=== PATIENT | male | born 1945 | race Caucasian/White ===

== ENCOUNTER 2021-04-09 16:48 | Emergency (ER) | payer BC ==
[2021-04-09 17:27] VITALS: BP 120/66; PULSE 62
--- NOTE | 2021-04-09 17:35 | EDM.PDOC ---
ED HPI GENERAL MEDICAL PROBLEM - General Chief Complaint: Lower Extremity Injury/Pain Stated Complaint: FELL HURT LEFT CALF Time Seen by Provider: 04/09/21 17:00 Source of Information: Reports: Patient History Limitations: Reports: No Limitations - History of Present Illness INITIAL COMMENTS - FREE TEXT/NARRATIVE: Pt. presents to ER with complaints of bilateral calf pain. Pt. states that he was [place] when he fell. He states that he caught himself and did not completely fall, and states that he injured his calf muscles in the process. Pt. denies any problems with weight bearing. He was able to morgan after the fall. Denies any injury elsewhere. 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, Cold Therapy Bilateral Lower Leg Pain Score (Numeric/FACES): 6 - Related Data Allergies Allergy/AdvReac Type Severity Reaction Status Date / Time ezetimibe Allergy Muscle Verified 04/09/21 17:21 [From Vytorin 10-10] Aches niacin Allergy Muscle Verified 04/09/21 17:21 [From Niaspan Aches Extended-Release] pravastatin sodium Allergy Muscle Verified 04/09/21 17:21 [From Pravachol] Aches rosuvastatin calcium Allergy Muscle Verified 04/09/21 17:21 [From Crestor] Aches simvastatin Allergy Muscle Verified 04/09/21 17:21 [From Vytorin 10-10] Aches Home Meds: Home Meds Acetaminophen [Acetaminophen Extra Strength] 1 cap PO QID PRN 10/27/13 [History] Aspirin [Halfprin] 81 mg PO DAILY 10/27/13 [History] Flaxseed [Flaxseed Oil] 1,000 mg PO DAILY 10/27/13 [History] Lisinopril 2.5 mg PO DAILY 10/27/13 [History] Metoprolol Tartrate 0.5 tab PO DAILY 10/27/13 [History] Nitroglycerin [Nitrostat] 0.4 mg SL ASDIRECTED PRN 10/27/13 [History] [place]-3 Fatty Acids [[place]-3] 1,000 mg PO BID 10/27/13 [History] Fluticasone Propionate [Flonase] 1 spray NASBOTH DAILY 12/23/15 [History] Alirocumab [Praluent Pen] 75 mg SQ ASDIRECTED 09/12/16 [History] Past Medical History Cardiovascular History: Reports: [place] - Past Surgical History Cardiovascular Surgical History: Reports: Coronary Artery Bypass Review of Systems - Review of Systems Review Of Systems: See Below Constitutional: Reports: No Symptoms Eyes: Reports: No Symptoms Ears: Reports: No Symptoms Nose: Reports: No Symptoms Mouth/Throat: Reports: No Symptoms Respiratory: Reports: No Symptoms Cardiovascular: Reports: No Symptoms GI/Abdominal: Reports: No Symptoms Genitourinary: Reports: No Symptoms Musculoskeletal: Reports: Leg Pain Skin: Reports: No Symptoms Neurological: Reports: No Symptoms Psychiatric: Reports: No Symptoms ED EXAM, GENERAL - Physical Exam Exam: See Below Exam Limited By: No Limitations General Appearance: Alert, WD/WN, No Apparent Distress Extremities: Normal Inspection, Normal Range of Motion, No Pedal Edema, Other (pain on palpation of backs of calves bilaterally. No ecchymosis. No edema. No camron deformity noted to either extremity. Drawer tests of knees negative bilaterally.) Neurological: Alert, Oriented, CN II-XII Intact, Normal Cognition Psychiatric: Normal Affect, Normal Mood Skin Exam: Warm, Dry, Intact, Normal Color, No Rash Course - Vital Signs Last Recorded V/S: Last Vital Signs Temp 36.6 C 04/09/21 17:00 Pulse 62 04/09/21 17:00 Resp 16 04/09/21 17:00 BP 120/66 04/09/21 17:00 Pulse Ox 97 04/09/21 17:00 Departure - Departure Time of Disposition: 17:30 Disposition: Home, Self-Care 01 Clinical Impression: Gastrocnemius muscle strain - Discharge Information Instructions: Medial Head Gastrocnemius Tear Rehab-SportsMed Additional Instructions: Home to rest. Continue with the tylenol. I gave you some exercises you can try to help you recover. Try to walk around the house every hour or so. Ice both calves every hour for 15 minutes. Sepsis Event Note (ED) - Evaluation Sepsis Screening Result: No Definite Risk - Focused Exam Vital Signs: Vital Signs Temp Pulse Resp BP Pulse Ox 04/09/21 17:00 36.6 C 62 16 120/66 97 - Assessment/Plan Plan: Home to rest. Continue with the tylenol. I gave you some exercises you can try to help you recover. Try to walk around the house every hour or so. Ice both calves every hour for 15 minutes.
== END 2021-04-09 17:18 | disposition home or self-care (01) ==
LOC: VM.ED 16:48
DX: S86.112A Strain of other muscle(s) and tendon(s) of posterior muscle group at lower leg level, left leg, initial encounter (principal); S86.111A Strain of other muscle(s) and tendon(s) of posterior muscle group at lower leg level, right leg, initial encounter; I25.2 Old myocardial infarction; Z88.8 Allergy status to other drugs, medicaments and biological substances; Z88.1 Allergy status to other antibiotic agents; Z79.82 Long term (current) use of aspirin; Z79.899 Other long term (current) drug therapy; W18.39XA Other fall on same level, initial encounter
CPT/HCPCS: 99283

== ENCOUNTER 2024-10-10 14:44 | Emergency (ER) | payer BC ==
[2024-10-10] MEDS ORDERED: Sodium Chloride 0.9% 10 ML Syringe FLUSH PRN (15:15)
[2024-10-10 15:35] LABS: BASOPHILS PERCENT AUTO 0.2 % (0.2-1.2); EOSINOPHILS ABSOLUTE AUTO 0.1 x10^3/uL (0.0-0.5); EOSINOPHILS PERCENT AUTO 2.6 % (0.0-4.0); HEMATOCRIT 43.2 % (40.0-52.0); HEMOGLOBIN 14.7 g/dL (14.0-18.0); LYMPHOCYTES ABSOLUTE AUTO 1.8 x10^3/uL (1.0-4.8); LYMPHOCYTES PERCENT AUTO 39.4 % (25.0-50.0); MEAN CORPUSCULAR HEMOGLOBIN 34.1 pg (26.0-32.0); MEAN CORPUSCULAR VOLUME 100.2 fL (78.0-93.0); MONOCYTES ABSOLUTE AUTO 0.4 x10^3/uL (0.0-0.8); NEUTROPHILS ABSOLUTE AUTO 2.2 x10^3/uL (1.8-7.7); NEUTROPHILS PERCENT AUTO 48.8 % (50.0-80.0); PLATELET COUNT,PLT 161 x10^3/uL (130-400); RED BLOOD CELL COUNT 4.31 x10^6/uL (4.5-6.0); WHITE BLOOD CELL COUNT,WBC 4.5 x10^3/uL (4.0-10.0)
[2024-10-10 15:48] LABS: INR 0.9 (0.9-1.1); PROTHROMBIN TIME 9.9 SEC (9.6-12.0); PTT,PARTIAL THROMBOPLSTIN TIME 25.9 SEC (23.5-33.2)
[2024-10-10 15:54] LABS: LACTIC ACID 1.5 mmol/L (0.4-2.0)
[2024-10-10 16:00] LABS: A/G RATIO 0.71; ALANINE AMINOTRANSFERASE,ALT 9 U/L (16-63); ALKALINE PHOSPHATASE 149 U/L (46-116); ASPARTATE AMNIOTRANSFERASE,AST 18 U/L (15-37); BILIRUBIN TOTAL 0.4 mg/dL (0.2-1.0); BLOOD UREA NITROGEN,BUN 25 mg/dL (7-18); CALCIUM 8.1 mg/dL (8.5-10.1); CARBON DIOXIDE,CO2 30 mmol/L (21-32); CHLORIDE,CL 105 mmol/L (98-107); EST CRCL DRUG DOSING (CG) 51.25 mL/min; GLUCOSE RANDOM 91 mg/dL (70-99); POTASSIUM,K 4.3 mmol/L (3.5-5.1); PRO B-TYPE NATRIUR PEPT,BNPPRO 289 pg/mL (<=450); PROTEIN TOTAL,TP 7.2 g/dL (6.4-8.2); SODIUM,NA 141 mmol/L (136-145)
[2024-10-10 16:01] LABS: ANION GAP 10.3 mmol/L (5-15); C-REACTIVE PROTEIN < 0.50 mg/dL (<=0.50); ESTIMATED GFR 76 mL/min (>=60)
[2024-10-10] MEDS: cefTRIAXone 1 GM Vial IVPUSH ONE (16:16)
[2024-10-10 17:03] VITALS: BP 145/72; PULSE 53
== END 2024-10-10 16:25 | disposition home or self-care (01) ==
LOC: VM.ED 14:44
DX: J40 Bronchitis, not specified as acute or chronic (principal); I25.2 Old myocardial infarction; Z88.8 Allergy status to other drugs, medicaments and biological substances; Z79.82 Long term (current) use of aspirin; Z79.899 Other long term (current) drug therapy
CPT/HCPCS: 36415; 71045; 80053; 83605; 83880; 84484; 85025; 85610; 85730; 86140; 87040; 87428-QW; 93005; 96374; 99285-25; J0696